=== PATIENT | female | born 1980 | race Caucasian/White ===

== ENCOUNTER 2018-01-28 01:12 | Inpatient (IN) | payer OTHER ==
[2018-01-28] MEDS ORDERED: OXYTOCIN/LR 20 UNIT/1,000 ML BAG IV ONE (07:03)
[2018-01-28] MEDS ORDERED: PROMETHAZINE 25 MG/ML VIAL IV PRN (07:11)
[2018-01-28] MEDS ORDERED: Ringers Lactate 1,000 ML IV PRN (07:11)
[2018-01-28] MEDS ORDERED: BUTORPHANOL 1 MG/ML INJ IV PRN (07:11)
[2018-01-28] MEDS ORDERED: CARBOPROST TROME 250 MCG/ML IM PRN (07:11)
[2018-01-28] MEDS ORDERED: METHYLERGONOVINE 0.2MG/ML AMP IM PRN (07:11)
[2018-01-28 07:21] LABS: RPR Titer ND
[2018-01-28 07:25] LABS: Urine Appearance CLOUDY; Urine Bilirubin NEGATIVE (NEG); Urine Blood NEGATIVE (NEG); Urine Color YELLOW; Urine Glucose NEGATIVE (NEG); Urine Protein NEGATIVE (NEG); Urine Specific Gravity 1.015 (1.005-1.030); Urine Urobilinogen 0.2 mg/dL (0.2-1.0)
[2018-01-28 07:26] LABS: Absolute Lymphocytes (CBC) 1.3 K/uL (0.7-4.9); Absolute Monocytes 0.7 K/uL (0.1-1.3); Absolute Neutrophil 6.7 K/uL (1.8-8.0); Basophils % 0.4 % (0-1.3); Eosinophils % 0.7 % (0-4.4); Hematocrit 38.8 % (36.0-45.0); MCH 31.1 pg (27.0-35.0); MPV 9.4 fL (7.6-11.3); Monocytes % 8.1 % (3.3-12.3); RBC Red Blood Cell Count 4.35 M/uL (3.86-4.86)
[2018-01-28 07:37] LABS: Urine Microscopic Reflex ORDER UMIC
[2018-01-28 07:39] LABS: Urine Bacteria <20 /HPF (<20); Urine Culture Reflex Order REFLEXED; Urine RBC <5 /HPF (NONE SEEN)
[2018-01-28] MEDS ORDERED: OXYTOCIN/LR 20 UNIT/1,000 ML BAG IV SCH (08:00)
[2018-01-28] MEDS ORDERED: Ringers Lactate 1,000 ML IV SCH (08:00)
[2018-01-28 09:54] VITALS: BMI 28.3
[2018-01-28] MEDS ORDERED: FENTANYL/BUPIVACAINE/NS/PF 200 MCG/100 ML BAG EP PRN (09:57)
[2018-01-28] MEDS ORDERED: BUPIVACAINE 0.25% PF 10 ML VIAL IV ONE (09:58)
[2018-01-28] MEDS ORDERED: BUPIVACAINE 0.25% PF 30 ML VIAL ONE (10:18)
[2018-01-28] MEDS ORDERED: FENTANYL CITR 100 MCG/2 ML ONE (10:51)
[2018-01-28] MEDS ORDERED: LIDOCAINE 1% 20 ML MDV ONE (14:08)
[2018-01-28] MEDS ORDERED: BISACODYL 10 MG RECTAL SUPP RECT PRN (15:30)
[2018-01-28] MEDS ORDERED: DOCUSATE NA/SENNA CONC 1 TAB PO PRN (15:30)
[2018-01-28] MEDS ORDERED: ACETAMINOPHEN 500 MG TAB PO PRN (15:30)
[2018-01-28] MEDS ORDERED: Oxycodone HCl/Acetaminophen 1 TAB TAB PO PRN (15:30)
[2018-01-28] MEDS ORDERED: METHYLERGONOVINE 0.2 MG TAB PO PRN (15:30)
[2018-01-28] MEDS ORDERED: ONDANSETRON 4 MG (ODT) TAB PO PRN (15:30)
--- NOTE | 2018-01-28 20:23 | HP ---
Date of Admission: 01/28/2018 History Of Present Illness: Sue is a 37-year-old, 3, para 2-0-0-2, who presents at 39 wee ks and 5 days gestation for induction of labor. The patient has obtained care with me madhuri salomon at 8 weeks gestation. care has been complicated by history of abdominoplasty. The pat ient is advanced maternal age. The patient is Rh negative. The patient has been having irregular co ntractions. No vaginal bleeding. No leakage of fluid. Reports good movement. She has been c ompliant with all visits. She has seen Maternal- Medicine throughout the . S he had noninvasive testing performed, low risk male . She received her RhoGAM on at 28 weeks. She is GBS negative. She received her Tdap vaccine in the office, 1 hour glucos e screen was negative. See record for further details. Ob History: She has a history of 2 prior vaginal births, 1 female in November of 2000 and a male in Jul, both weighing approximately 7 pounds 12 ounces. Both were delivered here at [facility]. Past Surgical History: Includes breast augmentation and a tummy tuck in 2008. Past Medical History: Negative. Social History: Denies tobacco, alcohol or drug use. She is now . Family History: Significant for hypertension and depression. Physical Examination: Vital Signs: On admission, blood pressure 134/91, pulse of 75, respirations 18, temperature 97.6. General: Resting comfortably in bed. Head and Neck: Normocephalic, atraumatic. Neck is supple. Heart: Regular rate and rhythm. Respiratory: Symmetric nonlabored breathing. Abdomen: Gravid. Extremities: Bilateral lower extremities no clubbing, cyanosis, or edema. Vaginal Exam: Normal external female genitalia. Vagina pink and moist. Normal rugae. Cervix is 3 cm dilated, 60% effaced, -1 station. Rupture of membranes performed. Clear fluid noted. Vertex pre sentation. heart rate monitoring: heart rate baseline is 140, moderate variability, no deceleration s, category 2 tracing. [place] contractions are every 3-4 minutes. Pitocin is at 6 milliunits. GBS ne gative. Admission Labs: White blood cell count is 8.8, hemoglobin 13.6, hematocrit 38.8, platelet count is 1 95. Urine has no protein. Blood type AB negative. Assessment And Plan: Sue is a 37-year-old, advanced maternal age, 3, para 2-0-0-2 at 39 w eeks and 5 days gestation, presents for induction of labor. She is already 3 cm dilated. Pitocin is being given. Continuous maternal monitoring. Patient desires epidural, will be placed as long n as able. Anticipate vaginal . TROY Voice ID: [id number]
[2018-01-28] MEDS: IBUPROFEN 200 MG TAB PO PRN (20:45)
[2018-01-29 00:06] LABS: RPR (Rapid Plasma Reagin) NON-REACT (NON-REACT)
[2018-01-29] MEDS ORDERED: Ringers Lactate 1,000 ML IV ONE (04:04)
[2018-01-29 06:05] LABS: Absolute Lymphocytes (CBC) 1.5 K/uL (0.7-4.9); Absolute Monocytes 0.9 K/uL (0.1-1.3); Absolute Neutrophil 10.5 K/uL (1.8-8.0); Basophils % 0.3 % (0-1.3); Eosinophils % 0.7 % (0-4.4); Hematocrit 34.7 % (36.0-45.0); Lymphocytes % 11.3 % (15.3-44.8); MCH 31.6 pg (27.0-35.0); MCV 89.4 fL (80-100); MPV 8.8 fL (7.6-11.3); RBC Red Blood Cell Count 3.88 M/uL (3.86-4.86)
[2018-01-29] MEDS: IBUPROFEN 200 MG TAB PO PRN ×2 (06:30→15:50)
[2018-01-29 15:51] VITALS: BP 124/78; TEMP 98.2
[2018-02-02 04:53] LABS: HBsAG Nonreactive (Nonreactive)
--- NOTE | 2018-02-12 11:29 | P.OP ---
Date of Service: 01/28/18 Findings and Operative Technique The patient delivered a viable male infant in cephalic presentation on January 28, 2018 at 14 53. was delivered in cephalic presentation over a midline episiotomy once the was delivered nose and mouth were suctioned with a suction bulb cord was clamped and cut and infant was placed on mother's abdomen for skin to skin bonding. Attention was then turned to the placenta which was delivered with gentle traction at 2:56 p.m.. Attention was then turned to the midline episiotomy which was noted to be lacerated 2 third-degree laceration. This was repaired with a 201 of 3 O Vicryl in usual fashion. Estimated blood loss was 300 cc. Uterus was found to be firm patient tolerated delivery well. Infant's weight was found to be 7 lb 12 oz. Apgars were 8 and 9. For stage of labor was 5 hr and 13 min. 2nd stage was 10 min. Both mom and baby are doing well mom is going to breast-feed.
--- NOTE | 2018-02-12 11:30 | P.DS ---
Admission Date: 01/28/18 Discharge Date: 01/29/18 Disposition: ROUTINE DISCHARGE Discharge Condition: GOOD Brief History of Present Illness: See history and physical. Hospital Course: Patient did well. She delivered vaginally. Sustained a third-degree laceration. Sharp pain is well controlled. She does not need any narcotics. She is ambulating well breast-feeding without difficulty. Bonding well with the baby. denies any issues. Vital Signs/Physical Exam: Temp Pulse Resp BP Pulse Ox 98.2 F 86 16 124/78 01/29/18 15:00 01/29/18 15:00 01/29/18 15:00 01/29/18 15:00 General: Alert, In no apparent distress HEENT: Atraumatic Neck: Supple Respiratory: Normal air movement Cardiovascular: No edema, Normal pulses Gastrointestinal: Soft and benign (Fundus firm) Musculoskeletal: No clubbing, No swelling Laboratory Data at Discharge: WBC 13.1 K/uL (4.3-10.9) H D 01/29/18 05:39 Hgb 12.3 g/dL (12.0-15.0) 01/29/18 05:39 Hct 34.7 % (36.0-45.0) L 01/29/18 05:39 Plt Count 214 K/uL (152-406) 01/29/18 05:39 Home Medications: NK [No Home Meds] 01/29/18 Diet: Regular Activity: No lifting more than 10 lbs Followup: Lazaro Miller DO [Family Provider] - (Follow up with Dr. Miller in 6 weeks for check up)
== END 2018-01-29 16:30 | disposition home or self-care (01) | DRG 775 ==
LOC: 2ND-WC 06:08
PROVIDERS: ADMIT Student in an Organized Health Care Education/Training Program; ATTEND Student in an Organized Health Care Education/Training Program
PROC: 10E0XZZ Delivery of Products of Conception, External Approach (ICD-10-PCS; principal; 2018-01-28)
PROC: 0W8NXZZ Division of Female Perineum, External Approach (ICD-10-PCS; 2018-01-28)
PROC: 3E033VJ Introduction of Other Hormone into Peripheral Vein, Percutaneous Approach (ICD-10-PCS; 2018-01-28)
PROC: 10907ZC Drainage of Amniotic Fluid, Therapeutic from Products of Conception, Via Natural or Artificial Opening (ICD-10-PCS; 2018-01-28)
PROC: 0DQR0ZZ Repair Anal Sphincter, Open Approach (ICD-10-PCS; 2018-01-28)
DX: O70.20 Third degree perineal laceration during delivery, unspecified (principal); Z3A.39 39 weeks gestation of pregnancy; Z37.0 Single live birth
CPT/HCPCS: 36415; 81003; 81015; 85025; 86592; 86850; 86870; 86900; 86901; 87086; 87088; 87340; 88307; J2210; J2590; J3010